=== PATIENT | female | born 1980 | race African-American/Black ===

== ENCOUNTER 2025-07-15 18:56 | Emergency (ER) | payer SELFPAY ==
[~2025-07-15] VITALS: Ht 157.5 cm; Wt 69.0 kg
[2025-07-15 18:58] VITALS: O2SAT 98
[2025-07-15 19:08] VITALS: TEMP 37.1
[2025-07-15] MEDS ORDERED: DIPHENHYDRAMINE 50MG CAPSULE PO ONE (19:15)
[2025-07-15] MEDS: DIPHENHYDRAMINE 25MG CAPSULE PO SCH (19:59)
[2025-07-15] MEDS: FAMOTIDINE 20MG TABLET PO ONE (20:00)
[2025-07-15] MEDS: ACETAMINOPHEN 500MG TABLET PO ONE (20:00)
[2025-07-15] MEDS: DEXAMETHASONE 4MG TABLET PO ONE (20:25)
[2025-07-15 20:52] LABS: HEMATOCRIT. 39.1 % (36.0-48.0); HEMOGLOBIN. 12.3 g/dL (12.0-16.0); MEAN PLATELET VOLUME 8.6 fl (7.4-10.4); PLATELET 247 x1000/uL (130-400); RED BLOOD CELL COUNT 4.74 mill/uL (4.2-5.4); RED CELL DISTRIBUTION WIDTH 14.1 % (11.6-14.6)
[2025-07-15 21:09] LABS: CREATININE 1.1 mg/dL (0.6-1.0); UREA NITROGEN BLOOD 11 mg/dL (9-23)
[2025-07-15 21:12] LABS: LYMPHOCYTES % MANUAL 6.0 % (20.0-60.0); MONOCYTES % MANUAL 3.0 % (2.0-8.0); NEUTROPHILS % MANUAL 91.0 % (45.0-75.0); PLATELET ESTIMATE NORMAL
[2025-07-15] MEDS ORDERED: KCL 20MEQ/100ML PREMIX 100 ML IV SCH (21:30)
[2025-07-15] MEDS ORDERED: P20 MT (23:00)
[2025-07-15] MEDS ORDERED: EPIN0.3P3 IM (23:00)
[2025-07-15] MEDS: POTASSIUM CHLORIDE 20MEQ/PACKET PO ONE (23:15)
[2025-07-15 23:16] VITALS: BP 134/88; PULSE 125; RESP 20; O2SAT 98
== END 2025-07-15 23:17 | disposition home or self-care (01) ==
LOC: ER 19:06 → CMPBEDREQ 07-16 08:01
DX: R07.89 Other chest pain (principal); R11.2 Nausea with vomiting, unspecified; I10 Essential (primary) hypertension; Z88.5 Allergy status to narcotic agent; Z88.6 Allergy status to analgesic agent
CPT/HCPCS: 99284; 80048; 85025; 36415; J8540; Q0163